=== PATIENT | male | born 1990 | race Caucasian/White ===

== ENCOUNTER 2019-12-03 10:30 | Emergency (ER) | payer OTHER ==
[~2019-12-03] VITALS: Ht 180.3 cm; Wt 64.5 kg
[2019-12-03 10:48] VITALS: BP 135/69
[2019-12-03] MEDS ORDERED: DIAZEPAM 5 MG TABLET PO ONE (12:00)
[2019-12-03] MEDS ORDERED: KETOROLAC 30 MG/1 ML IM ONE (12:00)
[2019-12-03] MEDS ORDERED: DIAZEPAM 5 MG TABLET ONE (12:10)
[2019-12-03] MEDS ORDERED: KETOROLAC 30 MG/1 ML ONE (12:10)
[2019-12-03 12:53] LABS: MICROSCOPIC NOT IND
[2019-12-03 12:58] LABS: CULTURE INDICATED? NO
== END 2019-12-03 13:24 | disposition home or self-care (01) ==
LOC: ED 12:18
DX: S29.012A Strain of muscle and tendon of back wall of thorax, initial encounter (principal); L20.9 Atopic dermatitis, unspecified; M54.5 Low back pain; X58.XXXA Exposure to other specified factors, initial encounter; Y93.89 Activity, other specified; Y92.89 Other specified places as the place of occurrence of the external cause; Y99.8 Other external cause status
CPT/HCPCS: 72110; 81003; 96372; 99284; J1885

== ENCOUNTER 2020-03-01 02:28 | Emergency (ER) | payer SELFPAY ==
[~2020-03-01] VITALS: Ht 180.3 cm; Wt 64.0 kg
[2020-03-01 02:30] VITALS: BP 120/67
[2020-03-01] MEDS ORDERED: CARBAMIDE PEROXIDE EAR DROPS 6.5%, 15ML LEFT EAR ONE (03:00)
--- NOTE | 2020-03-01 03:26 | NUR ---
Irrigated patient's ears with no incidients. Discharge instructions given. All questions and concerns addressed. Patient ambulatory with a steady gait. Belongings with patient.
== END 2020-03-01 03:28 | disposition home or self-care (01) ==
LOC: ED 03:08
DX: H61.22 Impacted cerumen, left ear (principal)
CPT/HCPCS: 69209; 99282